=== PATIENT | female | born 1975 | race Caucasian/White ===

== ENCOUNTER 2018-07-13 01:25 | Emergency (ER) | payer OTHER ==
[~2018-07-13] VITALS: Ht 165.1 cm; Wt 103.0 kg
[~2018-07-13 01:25] MED LIST: NOHOMEMEDICATIONS; PREDNISONE 20 M20 MG PO
[2018-07-13] MEDS ORDERED: VITAFOL-OB+DHA1 EACH PO (01:30)
[2018-07-13 01:51] LABS: HEMATOCRIT 35.6 % (37.0-47.0); MCH 32.7 pg (26.0-34.0); MCHC 33.7 g/dL (28.0-37.0); RBC 3.67 mil/uL (4.20-5.00); RDW 13.7 % (10.5-14.5); WBC 9.4 thou/uL (4.0-11.0)
[2018-07-13 01:59] LABS: CREATININE 0.5 mg/dL (0.6-1.0); POTASSIUM 3.8 mmol/L (3.5-5.1)
[2018-07-13 05:52] VITALS: BP 123/68
== END 2018-07-13 07:55 | disposition home or self-care (01) ==
LOC: ER 01:25
PROVIDERS: Emergency Medicine
DX: O20.0 Threatened abortion (principal); E28.2 Polycystic ovarian syndrome; Z88.2 Allergy status to sulfonamides; Z3A.20 20 weeks gestation of pregnancy